=== PATIENT | female | born 1975 | race Caucasian/White ===

== ENCOUNTER 2024-06-13 08:00 | Outpatient (CLI) | payer BC | END 2024-06-13 23:59 | disposition home or self-care (01) | LOC: LAB.S 08:00 | PROVIDERS: ATTEND Registered Nurse | DX: R10.2 Pelvic and perineal pain (principal); R21 Rash and other nonspecific skin eruption | CPT/HCPCS: 87255 ==

== ENCOUNTER 2024-06-15 07:23 | Outpatient (CLI) | payer BC ==
[2024-06-16 06:10] LABS: HSV 1 IGG TYPE SPEC 35.9 index (0.00-0.90); HSV 2 IGG TYPE SPEC 12.5 index (0.00-0.90)
== END 2024-06-15 07:24 | disposition home or self-care (01) ==
LOC: LAB.S 07:23
PROVIDERS: ATTEND Registered Nurse
DX: R10.2 Pelvic and perineal pain (principal); R21 Rash and other nonspecific skin eruption
CPT/HCPCS: 36415; 86695; 86696